=== PATIENT | female | born 1975 | race Caucasian/White ===

== ENCOUNTER 2018-09-17 09:26 | Inpatient (IN) ==
[2018-09-17] MEDS ORDERED: LEVOFLOXACIN INJ 500 MG in PREMIX 1 EACH IV STA (11:04)
[2018-09-17 12:22] LABS: Basophils # 0.1 10*3/uL (0.0-0.2); Basophils % 0.6 % (0.0-0.8); Eosinophils # 0.2 10*3/uL (0.0-0.87); Eosinophils % 2.4 % (0.00-10.9); Hematocrit 41.3 VOL% (35.7-47.0); Hemoglobin 13.4 GM/DL (12.0-16.0); Immature Granulocytes % 0.8 %; Immature Granulocytes Absolute 0.07 #; Lymphocytes # 2.1 10*3/uL (1.4-4.0); Lymphocytes % 25.8 % (21.3-54.2); Mean Corpuscular HGB Conc 32.4 GM/DL (32-36); Mean Corpuscular Hemoglobin 31 PG (27-34); Mean Corpuscular Volume 95.6 FL (87-102); Mean Platelet Volume 11.7 FL (9.6-12.0); Monocytes # 0.5 10*3/uL (0.11-0.8); Monocytes % 5.4 % (1.7-12.7); NRBC # 0.02 10*3/uL; Neutrophils # 5.4 10*3/uL (1.4-7.4); Platelet Count 191 T/CUMM (130-400); Red Blood Count 4.32 MC/CUMM (3.8-5.5); Red Cell Distribution Width 14.9 % (9.3-17.3); White Blood Count 8.3 T/CUMM (4-12)
[2018-09-17] MEDS ORDERED: MORPHINE 4 MG/1 ML VIAL IV PRN (12:24)
[2018-09-17] MEDS ORDERED: ONDANSETRON 4 MG/2 ML VIAL IV PRN (12:24)
[2018-09-17] MEDS ORDERED: ALBUTEROL 2.5 MG/3 ML NEB RESP TX PRN ×2 (12:27→16:23)
[2018-09-17 12:35] LABS: Calcium 8.6 MG/DL (8.5-10.1); Osmolality,Calculated 261.7 MOS/KG (273-304); Potassium 3.9 MMOL/L (3.5-5.1)
[2018-09-17 12:52] LABS: Platelet Estimate Normal
[2018-09-17 12:53] LABS: Anisocytosis Slight
[2018-09-17] MEDS ORDERED: PHENOL 1.4% THROAT SPRAY 177 ML BOTTLE PO PRN (13:41)
[2018-09-17] MEDS: SODIUM CHLORIDE 0.9% 1,000 ML IV SCH ×2 (14:48→23:50)
[2018-09-17] MEDS: ALBUTEROL/IPRATROPIUM 3 ML NEB RESP TX SCH ×2 (15:02→19:37)
[2018-09-17] MEDS: CEFEPIME 1,000 MG in SYRINGE 1 EACH IV SCH ×2 (15:04→23:51)
[2018-09-17] MEDS ORDERED: IBUPROFEN 600 MG TABLET PO PRN (16:23)
[2018-09-17] MEDS: NICOTINE 7 MG/24 HR PATCH TRANSDERM SCH (16:50)
[2018-09-17] MEDS: HYDROCORTISONE 100 MG VIAL IV SCH (17:17)
[2018-09-17] MEDS: ENOXAPARIN 40 MG/0.4 ML SYRINGE SUBCUT SCH (21:11)
[2018-09-18] MEDS: BENZONATATE 100 MG CAPSULE PO PRN (00:38)
[2018-09-18] MEDS: ALBUTEROL/IPRATROPIUM 3 ML NEB RESP TX SCH ×4 (00:57→19:52)
[2018-09-18] MEDS: HYDROCORTISONE 100 MG VIAL IV SCH ×3 (04:56→20:30)
[2018-09-18 05:01] LABS: Basophils # 0.1 10*3/uL (0.0-0.2); Basophils % 0.6 % (0.0-0.8); Eosinophils # 0.1 10*3/uL (0.0-0.87); Eosinophils % 0.7 % (0.00-10.9); Hemoglobin 11.9 GM/DL (12.0-16.0); Immature Granulocytes % 0.8 %; Immature Granulocytes Absolute 0.07 #; Lymphocytes # 2.6 10*3/uL (1.4-4.0); Lymphocytes % 29.2 % (21.3-54.2); Mean Corpuscular HGB Conc 32.2 GM/DL (32-36); Mean Corpuscular Hemoglobin 31 PG (27-34); Mean Corpuscular Volume 96.4 FL (87-102); Monocytes # 0.5 10*3/uL (0.11-0.8); Monocytes % 6.1 % (1.7-12.7); Neutrophils # 5.5 10*3/uL (1.4-7.4); Neutrophils % 62.6 % (38.7-73.9); Platelet Count 244 T/CUMM (130-400); Red Blood Count 3.84 MC/CUMM (3.8-5.5); Red Cell Distribution Width 15.1 % (9.3-17.3); White Blood Count 8.8 T/CUMM (4-12)
[2018-09-18 05:14] LABS: Calcium 8.3 MG/DL (8.5-10.1); Potassium 3.4 MMOL/L (3.5-5.1)
[2018-09-18] MEDS: LEVOTHYROXINE 137 MCG TABLET PO SCH (06:35)
[2018-09-18] MEDS: SODIUM CHLORIDE 0.9% 1,000 ML IV SCH ×2 (06:39→18:12)
[2018-09-18] MEDS: PANTOPRAZOLE 40 MG TABLET PO SCH (09:00)
[2018-09-18] MEDS: FLUDROCORTISONE 0.1 MG TABLET PO SCH (09:00)
[2018-09-18] MEDS ORDERED: HYDROCORTISONE 10 MG TABLET PO SCH (09:00)
[2018-09-18] MEDS: SERTRALINE 50 MG TABLET PO SCH (09:00)
[2018-09-18] MEDS: POTASSIUM CHLORIDE 20 MEQ TABLET PO PRN ×3 (09:00→14:48)
[2018-09-18] MEDS: NICOTINE 7 MG/24 HR PATCH TRANSDERM SCH (09:00)
[2018-09-18] MEDS: cefTRIAXone 1,000 MG in SYRINGE 1 EACH IV SCH (09:02)
[2018-09-18] MEDS: ENOXAPARIN 40 MG/0.4 ML SYRINGE SUBCUT SCH (20:30)
[2018-09-19] MEDS: HYDROCORTISONE 100 MG VIAL IV SCH (04:48)
[2018-09-19] MEDS: LEVOTHYROXINE 137 MCG TABLET PO SCH (06:29)
[2018-09-19] MEDS: ALBUTEROL/IPRATROPIUM 3 ML NEB RESP TX SCH ×4 (07:00→19:09)
[2018-09-19 08:09] LABS: Basophils # 0.1 10*3/uL (0.0-0.2); Basophils % 0.5 % (0.0-0.8); Eosinophils % 0.2 % (0.00-10.9); Hematocrit 35.7 VOL% (35.7-47.0); Hemoglobin 11.4 GM/DL (12.0-16.0); Lymphocytes # 3.1 10*3/uL (1.4-4.0); Lymphocytes % 31.9 % (21.3-54.2); Mean Corpuscular HGB Conc 31.9 GM/DL (32-36); Mean Corpuscular Hemoglobin 31 PG (27-34); Mean Corpuscular Volume 98.1 FL (87-102); Mean Platelet Volume 10.3 FL (9.6-12.0); Monocytes # 0.6 10*3/uL (0.11-0.8); Monocytes % 6.1 % (1.7-12.7); Neutrophils # 5.8 10*3/uL (1.4-7.4); Neutrophils % 59.3 % (38.7-73.9); Platelet Count 250 T/CUMM (130-400); Red Blood Count 3.64 MC/CUMM (3.8-5.5); Red Cell Distribution Width 15.3 % (9.3-17.3); White Blood Count 9.8 T/CUMM (4-12)
[2018-09-19] MEDS: SODIUM CHLORIDE 0.9% 1,000 ML IV SCH (08:24)
[2018-09-19] MEDS: PANTOPRAZOLE 40 MG TABLET PO SCH (08:25)
[2018-09-19] MEDS: SERTRALINE 50 MG TABLET PO SCH (08:25)
[2018-09-19] MEDS: FLUDROCORTISONE 0.1 MG TABLET PO SCH (08:25)
[2018-09-19] MEDS: NICOTINE 7 MG/24 HR PATCH TRANSDERM SCH (08:26)
[2018-09-19] MEDS: cefTRIAXone 1,000 MG in SYRINGE 1 EACH IV SCH (08:26)
[2018-09-19 08:37] LABS: Calcium 8.3 MG/DL (8.5-10.1); Osmolality,Calculated 280.4 MOS/KG (273-304); Potassium 3.8 MMOL/L (3.5-5.1)
[2018-09-19] MEDS: ENOXAPARIN 40 MG/0.4 ML SYRINGE SUBCUT SCH (20:37)
[2018-09-19] MEDS ORDERED: ZALEPLON 5 MG CAPSULE PO SCH (21:00)
[2018-09-20] MEDS: ALBUTEROL/IPRATROPIUM 3 ML NEB RESP TX SCH ×2 (00:38→06:52)
[2018-09-20] MEDS: LEVOTHYROXINE 137 MCG TABLET PO SCH (06:15)
[2018-09-20 07:33] VITALS: BP 101/70
[2018-09-20] MEDS: BENZONATATE 100 MG CAPSULE PO PRN (08:47)
[2018-09-20] MEDS: FLUDROCORTISONE 0.1 MG TABLET PO SCH (08:47)
[2018-09-20] MEDS: SERTRALINE 50 MG TABLET PO SCH (08:47)
[2018-09-20] MEDS: cefTRIAXone 1,000 MG in SYRINGE 1 EACH IV SCH (08:48)
[2018-09-20] MEDS: PANTOPRAZOLE 40 MG TABLET PO SCH (08:48)
[2018-09-20] MEDS: NICOTINE 7 MG/24 HR PATCH TRANSDERM SCH (08:51)
[2018-09-20] MEDS ORDERED: HYDROCORTISONE 10 MG TABLET PO SCH ×2 (09:00→12:00)
== END 2018-09-20 12:00 | disposition home or self-care (01) | DRG 194 ==
LOC: N.ED 09:26 → SUATTDRO 12:24 → N.EDINP 12:24 → N.2E 14:01
PROVIDERS: ADMIT Internal Medicine; ATTEND Hospitalist